=== PATIENT | female | born 1990 | race Two or more races ===

== ENCOUNTER → 2023-05-25 14:09 | Outpatient (CLI) | payer OTHER | END | disposition home or self-care (01) | LOC: PRENATAL 14:09 | PROVIDERS: ATTEND Obstetrics & Gynecology Maternal & Fetal Medicine | DX: O35.3XX0 Maternal care for (suspected) damage to fetus from viral disease in mother, not applicable or unspecified (principal); O44.00 Complete placenta previa NOS or without hemorrhage, unspecified trimester; O09.529 Supervision of elderly multigravida, unspecified trimester; Z3A.19 19 weeks gestation of pregnancy ==

== ENCOUNTER 2023-09-29 13:15 | Inpatient (IN) | payer OTHER ==
[~2023-09-29] VITALS: Ht 152.4 cm; Wt 3.2 kg
[2023-10-13] MEDS ORDERED: RINGERS SOLUTION,LACTATED 1,000 ML IV SCH (21:45)
[2023-10-13] MEDS ORDERED: PRENATABS RX T1 EACH PO (21:55)
[2023-10-13 23:11] LABS: URINE APPEARANCE Turbid; URINE BILIRRUBIN Negative (NEGATIVE); URINE BLOOD Small; URINE COLOR Yellow; URINE GLUCOSE Negative (NEGATIVE); URINE LEUKOCYTE Negative; URINE NITRATE Negative; URINE PROTEIN Trace (NEGATIVE); URINE UROBILINOGEN 0.2 E.U./dl
[2023-10-13 23:15] LABS: URINE BACTERIA 214.1 uL (0.0-1933); URINE EPITHELIAL CELLS 19.4 uL (0.0-38.8); URINE RBC 923.4 uL (0.0-20.8); URINE WBC 9.5 uL (0.0-23.2)
[2023-10-13 23:19] LABS: HEMATOCRIT 35.1 % (36.0-45.00); HEMOGLOBIN 12.2 g/dL (12.0-15.00); MEAN CELL VOLUME 90.8 fL (80.00-100.00); MEAN CORPUSCULAR HEMOGLOBIN 31.4 pg (27.00-32.0); MEAN CORPUSCULAR HGB CONC 34.6 g/dl (32.0-36.0); PLATELET COUNT 226 K/uL (150-450); RED BLOOD COUNT 3.87 M/uL (4.00-6.00)
[2023-10-13 23:28] LABS: INR < 0.93; PARTIAL THROMBOPLASTIN TIME 27.3 SECONDS (22.0-34.0); PROTHROMBIN TIME 9.7 SECONDS (9.0-11.5)
[2023-10-13 23:35] LABS: ALBUMIN 2.8 gm/dL (3.4-5.0); BILIRUBIN TOTAL 0.3 mg/dL (0.3-1.2); CALCIUM 8.9 mg/dL (8.5-10.1); CREATININE SERUM 0.55 mg/dL (0.55-1.02); GFR 126.52; GLOBULINA 3.5 G/DL (2.4-3.5); POTASSIUM 4.1 mEq/L (3.5-5.1); TOTAL PROTEIN 6.3 gm/dL (6.4-8.2)
[2023-10-14] MEDS ORDERED: AMPICILLIN SODIUM 2,000 MG VIAL ONE (07:33)
[2023-10-14] MEDS ORDERED: OXYTOCIN 20 UNITS/500ML RL PIGGYBAG IV ONE (07:35)
[2023-10-14] MEDS ORDERED: AMPICILLIN SODIUM 2,000 MG in 0.9 % SODIUM CHLORIDE 100 ML IV SCH (07:56)
[2023-10-14] MEDS ORDERED: OXYTOCIN 500 ML IV SCH (08:00)
[2023-10-14] MEDS ORDERED: PROMETHAZINE HCL 50 MG/ML AMPUL IM ONE (08:09)
[2023-10-14] MEDS ORDERED: PROMETHAZINE HCL 50 MG/ML AMPUL IV ONE (08:15)
[2023-10-14] MEDS ORDERED: MEPERIDINE HCL/PF 50 MG/ML VIAL IV ONE (08:15)
[2023-10-14] MEDS ORDERED: OXYTOCIN 10 UNITS/ML VIAL ONE (09:01)
[2023-10-14] MEDS ORDERED: ERYTHROMYCIN BASE 1 GM TUBE OP ONE (09:01)
[2023-10-14] MEDS ORDERED: OXYTOCIN 10 UNITS/ML VIAL IV NR (09:30)
[2023-10-14] MEDS ORDERED: ERYTHROMYCIN BASE 1 GM TUBE OP NR (09:30)
[2023-10-14] MEDS ORDERED: CEFOXITIN SODIUM 2,000 MG VIAL IV ONE ×2 (12:32→13:30)
[2023-10-14] MEDS ORDERED: MEPERIDINE HCL/PF 50 MG/ML VIAL IV SCH (12:50)
[2023-10-14] MEDS ORDERED: PROMETHAZINE HCL 50 MG/ML AMPUL IM SCH (12:51)
[2023-10-14] MEDS ORDERED: CHLORHEXIDINE GLUCONATE 120 ML BOTTLE TOP SCH (13:00)
[2023-10-14] MEDS ORDERED: OXYTOCIN 1,000 ML IV SCH (13:00)
[2023-10-14] MEDS ORDERED: ERYTHROMYCIN BASE 1 GM TUBE OP SCH (13:00)
[2023-10-14] MEDS ORDERED: RINGERS SOLUTION,LACTATED 1,000 ML IV SCH (13:00)
[2023-10-14] MEDS ORDERED: SIMETHICONE 125 MG CAPSULE PO SCH (13:00)
[2023-10-14 15:24] LABS: HEMATOCRIT 35.1 % (36.0-45.00); HEMOGLOBIN 12.3 g/dL (12.0-15.00); MEAN CELL VOLUME 90.4 fL (80.00-100.00); MEAN CORPUSCULAR HEMOGLOBIN 31.7 pg (27.00-32.0); PLATELET COUNT 223 K/uL (150-450); RED BLOOD COUNT 3.88 M/uL (4.00-6.00); RED CELL DISTRIBUTION WIDTH 14.1 % (11.5-14.5)
[2023-10-15] MEDS ORDERED: AMPICILLIN SODIUM 2,000 MG VIAL ONE (02:07)
[2023-10-15] MEDS ORDERED: ACETAMINOPHEN WITH CODEINE 1 UDTAB TABLET PO PRN (08:00)
[2023-10-15] MEDS ORDERED: NAPROXEN 500 MG TABLET PO SCH (09:00)
[2023-10-17] MEDS ORDERED: NAPR500T14 PO (08:23)
[2023-10-17] MEDS ORDERED: COLACE100 MG PO (08:23)
== END 2023-10-17 12:52 | disposition home or self-care (01) | DRG 788 ==
LOC: LDR 10-13 21:33 → OB/GYN 10-13 21:33 → LDR 10-13 21:52 → OB/GYN 10-14 12:08
PROVIDERS: Obstetrics & Gynecology; ADMIT Obstetrics & Gynecology; ATTEND Obstetrics & Gynecology
PROC: 4A1HXCZ Monitoring of Products of Conception, Cardiac Rate, External Approach (ICD-10-PCS; 2023-10-13)
PROC: 10D00Z1 Extraction of Products of Conception, Low, Open Approach (ICD-10-PCS; principal; 2023-10-14 08:00)
DX: O82 Encounter for cesarean delivery without indication (principal); Z3A.39 39 weeks gestation of pregnancy; Z37.0 Single live birth; Z20.822 Contact with and (suspected) exposure to COVID-19